=== PATIENT | male | born 2000 | race Caucasian/White ===

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

== ENCOUNTER 2020-08-16 17:45 | Emergency (ER) | payer OTHER ==
[~2020-08-16 17:45] MED LIST: IBUPROFEN600 MG PO
[2020-08-16 18:31] LABS: HEMOGLOBIN 15.5 gm/dl (14.0-17.5); RED BLOOD COUNT 5.13 M/UL (4.20-5.50); WHITE BLOOD COUNT 10.5 K/UL (4.5-11.0)
[2020-08-16 18:44] LABS: BUN/CREATININE RATIO 10 (0-10)
== END 2020-08-16 21:11 ==
LOC: ER1 17:45
PROVIDERS: Physician Assistant
DX: T43.621A Poisoning by amphetamines, accidental (unintentional), initial encounter (principal); E87.6 Hypokalemia; N17.9 Acute kidney failure, unspecified; E86.0 Dehydration; F17.210 Nicotine dependence, cigarettes, uncomplicated
CPT/HCPCS: 36415; 71045; 74018; 80053; 80307; 82550; 82553; 83735; 83874; 84484; 85025; 93005; 99284; G0480

== ENCOUNTER 2021-11-03 01:23 | Emergency (ER) | payer OTHER, MEDICAID ==
[2021-11-03 02:04] LABS: HEMOGLOBIN 13.9 gm/dl (14.0-17.5); RED BLOOD COUNT 4.72 M/UL (4.20-5.50); WHITE BLOOD COUNT 11.6 K/UL (4.5-11.0)
[2021-11-03 02:23] LABS: BUN/CREATININE RATIO 6 (0-10)
[2021-11-03] MEDS ORDERED: KLOR-CON20 MEQ PO (03:37)
== END 2021-11-03 04:02 ==
LOC: ER1 01:23
PROVIDERS: Physician Assistant
DX: S33.5XXA Sprain of ligaments of lumbar spine, initial encounter (principal); S13.4XXA Sprain of ligaments of cervical spine, initial encounter; S23.3XXA Sprain of ligaments of thoracic spine, initial encounter; E87.6 Hypokalemia; F17.210 Nicotine dependence, cigarettes, uncomplicated; V43.52XA Car driver injured in collision with other type car in traffic accident, initial encounter; W22.10XA Striking against or struck by unspecified automobile airbag, initial encounter; Y92.410 Unspecified street and highway as the place of occurrence of the external cause
CPT/HCPCS: 70450; 71260; 72125; 72128; 72131; 80053; 80307; 85025; 93005; 96374; 99285; G0480; J3480; Q9967